=== PATIENT | male | born 2000 | race Caucasian/White ===

== ENCOUNTER 2024-06-20 17:07 | Emergency (ER) | payer MEDICAID, SELFPAY ==
[2024-06-20 17:11] VITALS: BP 117/69; PULSE 104; TEMP 36.9; O2SAT 97; BMI 37.5
--- NOTE | 2024-06-20 17:18 | XR_ITS ---
[facility] [id number] Patient Name: CHINMAY DUMONT MRN: [id number] date: 2000 Sex: M Assigned Patient Location: ER Current Patient Location: Accession/Order Number: [id number] Exam Date: 06/20/2024 17:28 Report Date: 06/20/2024 19:07 At the request of: WES VILCHIS Procedure: XR chest 1V EXAM: XR chest 1V TECHNIQUE: Single AP view chest HISTORY: Cough COMPARISON: None. FINDINGS: The heart and mediastinum are unremarkable. The lung schneider are clear of any acute infiltrate, effusion or mass. No acute bony abnormality. XR/XR chest 1V IMPRESSION: No acute pulmonary disease. Electronically authenticated by: BREANN SANCHEZ Date: 06/20/2024 19:07
--- NOTE | 2024-06-20 17:19 | ED.GENADUL1 ---
HPI HPI - General Adult General Chief complaint: Shortness of Breath/Dyspnea Stated complaint: wheezing, sob Time Seen by Provider: 06/20/24 17:07 Source: patient Mode of arrival: Wheelchair Limitations: no limitations History of Present Illness HPI narrative: Patient is a 23-year-old male with a history of asthma who presents to the emergency department for a 1 month history of cough with occasional sputum production, increased shortness of breath and wheezing. He states he ran out of his albuterol several days ago, he had an albuterol breathing treatment several days ago with minimal improvement. He has had no fevers but reports hot and cold chills. He has had occasional blood-tinged nasal drainage but has not had any hemoptysis. He denies any recent antibiotics or steroids. Related Data Home Medications ?Medication ?Instructions ?Recorded ?Confirmed albuterol sulfate 2.5 mg/3 mL 2.5 mg continuous nebulization Q6H 06/20/24 06/20/24 (0.083 %) solution for nebulization PRN shortness of breath or wheezing albuterol sulfate 90 mcg/actuation 1 puff inhalation Q4H PRN 06/20/24 06/20/24 aerosol inhaler shortness of breath or wheezing cholecalciferol (vitamin D3) 1,250 1,250 mcg PO QWEEK 06/20/24 06/20/24 mcg (50,000 unit) capsule levothyroxine 50 mcg tablet 50 mcg PO DAILY 06/20/24 06/20/24 montelukast 10 mg tablet 10 mg PO DAILY 06/20/24 06/20/24 Previous Rx's ?Medication ?Instructions ?Recorded albuterol sulfate 2.5 mg/3 mL 2.5 mg (3 mL) inhalation Q6H PRN 06/20/24 (0.083 %) solution for nebulization shortness of breath or wheezing #90 mL albuterol sulfate 90 mcg/actuation 2 inh inhalation Q4H PRN shortness 06/20/24 aerosol inhaler of breath or wheezing #8.5 grams azithromycin 250 mg tablet See Rx Instructions PO .COMPLEX #6 06/20/24 (Zithromax Z-Andres) tabs methylprednisolone 4 mg tablets in See Rx Instructions .Route 06/20/24 a dose pack (Medrol (Andres)) .COMPLEX #21 ea Allergies Allergy/AdvReac Type Severity Reaction Status Date / Time No Known Drug Allergies Allergy Verified 06/20/24 17:10 Opioid HPI Opioid Management Most Recent Opioid Data: No Data to Display Review of Systems ROS Constitutional Reports: chills; Denies: fever Ears, nose, mouth, and throat Reports: nasal congestion; Denies: throat pain Cardiovascular Denies: chest pain Respiratory Reports: shortness of breath, cough, wheezing, change in phlegm color and chest congestion; Denies: coughing up blood Gastrointestinal Denies: nausea or vomiting Musculoskeletal Denies: back pain Integumentary/Breast Denies: rash Neurological Denies: numbness in extremities or weakness in extremities Hematologic/Lymphatic Denies: easy bruising or easy bleeding PFSH [facility] Social History Little interest or pleasure in doing things: not at all Feeling down, depressed, or hopeless: not at all Exam Narrative Exam Narrative: Gen.: Awake, alert, in no distress Head: Normocephalic, atraumatic ENT: Moist mucous membranes Respiratory: No respiratory distress, diminished lung sounds globally with no significant wheezing. Patient speaks in full sentences Cardio: Regular rate and rhythm Extremities: Moves extremities equally Psych: Normal mood and affect Neuro: No focal neuro deficit Skin: Warm, dry, intact Constitutional Vital Signs, click to edit/add: Last Vital Signs Temp 98.4 F 06/20/24 17:11 Pulse 95 H 06/20/24 17:32 Resp 20 06/20/24 17:32 BP 117/69 06/20/24 17:11 Pulse Ox 95 06/20/24 17:32 O2 Del Method Room Air 06/20/24 17:32 Course Vital Signs Vital signs: Vital Signs Temperature 98.4 F 06/20/24 17:11 Pulse Rate 104 H 06/20/24 17:11 Respiratory Rate 24 H 06/20/24 17:11 Blood Pressure 117/69 06/20/24 17:11 Pulse Oximetry 97 06/20/24 17:11 Oxygen Delivery Method Room Air 06/20/24 17:11 Temperature 98.4 F 06/20/24 17:11 Pulse Rate 95 H 06/20/24 17:32 Respiratory Rate 20 06/20/24 17:32 Blood Pressure 117/69 06/20/24 17:11 Pulse Oximetry 95 06/20/24 17:32 Oxygen Delivery Method Room Air 06/20/24 17:32 Medical Decision Making MDM Narrative Medical decision making narrative: Chest x-ray is unremarkable, patient given a breathing treatment and steroids in the emergency department. He has normal oxygen saturation, unremarkable vital signs. He will be treated based on the duration of his illness and the antibiotic, steroid taper and will be placed on his inhaler and nebulizers for home. Follow-up with PCP and return to the emergency department if symptoms change or worsen. SUPERVISED APC VISIT, PHYSICIAN ATTESTATION: Based on the medical record the care appears appropriate. ? Medical Records Medical records reviewed: Yes I reviewed the patient's medical records Imaging Data Chest x-ray: Attestation: I have reviewed the pertinent imaging results. Radiologist's impression: ITS Impressions Chest X-Ray 06/20/24 17:18 IMPRESSION: No acute pulmonary disease. Electronically authenticated by: BREANN SANCHEZ Date: 06/20/2024 19:07 Discharge Plan Discharge Chief Complaint: Shortness of Breath/Dyspnea Clinical Impression: Asthma with acute exacerbation, Upper respiratory infection Patient Disposition: Home, Self-Care Time of Disposition Decision: 18:09 Condition: Good Prescriptions / Home Meds: New albuterol sulfate 2.5 mg /3 mL (0.083 %) solution for nebulization 2.5 mg inhalation Q6H PRN (Reason: shortness of breath or wheezing) Qty: 90 0RF azithromycin [Zithromax Z-Andres] 250 mg tablet See Rx Instructions .ROUTE .COMPLEX Qty: 6 0RF Rx Instructions: For 250 mg dose pack: take 500 mg today (day 1), then 250 mg for 4 days (days 2-5) methylprednisolone [Medrol (Andres)] 4 mg tablets,dose pack See Rx Instructions .ROUTE .COMPLEX Qty: 21 0RF Rx Instructions: Taper as directed albuterol sulfate 90 mcg/actuation HFA aerosol inhaler 2 inh inhalation Q4H PRN (Reason: shortness of breath or wheezing) Qty: 8.5 0RF No Action albuterol sulfate 2.5 mg /3 mL (0.083 %) solution for nebulization 2.5 mg continuous nebulization Q6H PRN (Reason: shortness of breath or wheezing) albuterol sulfate 90 mcg/actuation HFA aerosol inhaler 1 puff INHALATION Q4H PRN (Reason: shortness of breath or wheezing) cholecalciferol (vitamin D3) 1,250 mcg (50,000 unit) capsule 1,250 mcg PO QWEEK levothyroxine 50 mcg tablet 50 mcg PO DAILY montelukast 10 mg tablet 10 mg PO DAILY Print Language: Tajik Instructions: Asthma (ED), Upper Respiratory Infection (ED) Referrals: Physician,Non-Staff, [Physician] - 1 week Discharge Date/Time: 06/20/24 18:18
[2024-06-20] MEDS: ALBUTEROL SULFATE 2.5 MG/3 ML VIAL NEB IH (17:31)
[2024-06-20 17:32] VITALS: PULSE 95; O2SAT 95
[2024-06-20] MEDS: PREDNISONE 20 MG TABLET 60 MG PO (17:37)
== END 2024-06-20 18:18 | disposition home or self-care (01) ==
PROVIDERS: Emergency Provider Emergency Medicine; PCP Nurse Practitioner Family
DX: J45.901 Unspecified asthma with (acute) exacerbation (principal); J06.9 Acute upper respiratory infection, unspecified
CPT/HCPCS: 71045; 94640; 99284; J7512

== ENCOUNTER 2024-11-12 23:19 | Emergency (ER) | payer MEDICAID, SELFPAY ==
[2024-11-12 23:33] VITALS: BP 140/95; PULSE 71; TEMP 36.9; O2SAT 97; BMI 35.0
--- OUTSIDE RECORDS SUMMARY | 2024-11-12 23:34 | XMS_ITS | CCD ---
Author Organization [facility] Care Team Providers Care Brakes Inspector Name Role Phone LOUIE GAMINO Admitting Unavailable LOUIE GAMINO Attending Unavailable JD NOBLE Referring Unavailable JD NOBLE Primary Care Unavailable [place] Procedure Practitioner Unavailab LOUIE Rosales Surgeon Unavailable [place] Procedure Practitioner Unavailab LILI Kennedy Surgeon Unavailable RICKIE ARCHULETA Attending Unavailable GEREMIASRICKIE Lucas Consulting Unavailable RICKIE ARCHULETA Primary Care Unavailable GEREMIASRICKIE Lucas Admitting Unavailable NO FAMILY, PHYSICIAN Primary Care Provider Unava MD Lucho Maldonado Jr Emergency Provider BHUMIKA Todd Attending Provider Lucho Zelaya Unavailable BHUMIKA Todd Primary Care Provider BHUMIKA Todd Attending Provider BHUMIKA Todd Attending Provider Lucho Zelaya MD Attending Provider [facility], Services Primary Care Prov ider Lucho Zelaya MD Attending Provider [facility], Services Primary Care Prov ider Teagan Todd Admitting Unavailable Teagan Todd Attending Unavailable [facility], Services Primary Care U navailable Lucho Zelaya Admitting Unavailable Lucho Zelaya Attending Unavailable [facility], Services Primary Care U navailable Lucho Zelaya Admitting Unavailable Lucho Zelaya Attending Unavailable [facility], Services Primary Care U navailable Lucho Zelaya Admitting Unavailable Lucho Zelaya Attending [facility], Services Primary Care U navailable Medications Current Medications Medication Drug Class(es) Dates Sig (Normalized) Sig (Original) acetaminophen 325 mg / HYDROcodone bitartrate 5 mg oral tablet (1 source) Opioid Agonist Start: 08-19-2024 take 1 tablet by mouth every four to six hours as needed for pain Hydrocodone-Acetam inophen 5-325 mg tablet Active 1 TAB PO EVERY 4-6 HOURS as needed for pain 10 5 August 19, 2024 to be used post op albuterol 0.83 mg/ml inhalation solution (7 sources) beta2-Adrenergic Agonist Start: 08-20-2024 Albuterol Sulfate 2.5 mg /3 mL (0.083 %) solution for nebulization Active 2.5 MG CNTNEBULIZ .q4-6hr as needed for shortness of breath or wheezing August 20, 2024 12:00am Start: 08-21-2017 End: 11-13-2017 Albuterol Sulfate 2.5 mg /3 mL (0.083 %) solution for nebulization Discontinued 1 UNIT INHALATION As Directed as needed for Shortness Of Breath August 21, 2017 12:00am November 13, 2017 11:07pm cholecalciferol 1.25 mg oral capsule (2 sources) Vitamin D Start: 05-27-2024 take 1 capsule by mouth once daily Cholecalciferol (Vitamin D3) 1,250 mcg (50,000 unit) capsule Active 1250 MCG PO Daily May 27, 2024 1:00am Start: 05-27-2024 Cholecalcifero l (Vitamin D3) 1,250 mcg (50,000 unit) capsule Active PO May 27, 2024 12:00am levothyroxine sodium 0.05 mg oral tablet (3 sources) l-Thyroxine Start: 05-27-2024 take 1 tablet by mouth once daily Levothyroxine 50 mcg tablet Active 50 MCG PO Daily May 27, 2024 1:00am Start: 05-27-2024 Levothyroxine 50 mcg tablet Active MCG PO May 27, 2024 12:00am Levothyroxine So dium Active montelukast (1 source) Leukotriene Receptor Antagonist Singulair Active vitamin b12 1 mg oral tablet (2 sources) Vitamin B12 Start: take 1 tablet by mouth once daily Cyanocobalamin (Vitamin B-12) 1,000 mcg tablet Active 1000 MCG PO Daily May 27, 2024 1:00am Completed/Discontinued Medications Medication Drug Class(es) Dates Sig (Normalized) Sig (Original) ibuprofen 600 mg oral tablet (12 sources) Nonsteroidal Anti-inflammatory Drug Start: 09-02-2021 End: 05-27-2024 take 1 tablet by mouth every eight hours as needed for pain Ibuprofen 600 mg tablet Discontinued 600 MG PO Q8H as needed for pain September 02, 2021 12:00am May 27, 2024 9:45am Start: 11-29-2017 End: 09-01-2021 take 1 tablet by mouth three times daily as needed for pain Ibuprofen 800 mg Tablet Discontinued 800 MG PO Three times daily as needed for Pain November 29, 2017 12:00am September 01, 2021 10:47pm naproxen 500 mg oral tablet (6 sources) Nonsteroidal Anti-inflammatory Drug Start: 11-13-2017 End: 09-01-2021 take 1 tablet by mouth twice daily Naproxen (Naprosyn) 500 mg tablet Discontinued 500 MG PO Twice daily November 13, 2017 12:00am September 01, 2021 10:47pm Problems Active Problems Problem Classification Problem Date Documented Date Episodic/Chronic Heart valve disorders (1 source) Rheumatic tricuspid insufficiency; Translations: [RHEUMATIC TRICUSPID INSUFFICIENCY] Onset: 04-04-2020 Chronic Joint disorders and dislocations; trauma-related (13 sources) Derangement of left knee; Translations: [Unspecified internal derangement of left knee] Onset: 09-08-2024 Chronic Joint disorders and dislocations; trauma-related (5 sources) Bucket-handle tear of lateral meniscus, current injury, left knee, initial encounter; Translations: [Complex tear of lateral meniscus, current injury, left knee, initial encounter] Onset: 06-21-2018 Episodic Nutritional deficiencies (1 source) Vitamin D deficiency, unspecified; Translations: [Vitamin D deficiency, unspecified] Onset: 02-28-2024 Chronic Open wounds of head; neck; and trunk (6 sources) Laceration of chin; Translations: [Laceration without foreign body of other part of head, initial encounter] 08-21-2017 Episodic Comment on above: Problem List clean-u p per request of Phys. EHR Cmte Other circulatory disease (6 sources) Elevated blood-pressure reading without diagnosis of hypertension; Translations: [Elevated blood-pressure reading, without diagnosis of hypertension] 09-02-2021 Episodic Comment on above: Problem List clean-u p per request of Phys. EHR Cmte Other nutritional; endocrine; and metabolic disorders (1 source) Obesity, unspecified; Translations: [OBESITY, UNSPECIFIED] Onset: 06-21-2018 Chronic Other nutritional; endocrine; and metabolic disorders (1 source) Body mass index (BMI) 39.0-39.9, adult; Translations: [BODY MASS INDEX (BMI) 39.0-39.9, ADULT] Onset: 06-21-2018 Chronic Residual codes; unclassified (3 sources) Other specified postprocedural states; Translations: [Other postprocedural status] 05-27-2024 Episodic Residual codes; unclassified (1 source) Postprocedural state finding; Translations: [Other specified postprocedural states] 08-19-2024 Episodic Substance-related disorders (1 source) Nicotine dependence, cigarettes, uncomplicated; Translations: [NICOTINE DEPENDENCE, CIGARETTES, UNCOMPLICATED] Onset: 06-21-2018 Chronic Thyroid disorders (4 sources) Hypothyroidism; Translations: [Hypothyroidism, unspecified] Onset: 02-28-2024 08-02-2023 Chronic Unclassified (2 sources) TEAR OF LATERAL MENISCUS OF KNEE Onset: 06-21-2018 Past or Other Problems Problem Classification Problem Date Documented Da te Episodic/Chronic Malaise and fatigue (1 source) Other fatigue; Translations: [Other fatigue] Onset: 02-28-2024 Episodic Nonspecific chest pain (11 sources) Other chest pain; Translations: [Chest wall pain] Onset: 03-30-2020 09-02-2021 Episodic Comment on above: Problem List clean-u p per request of Phys. EHR Cmte Other non-traumatic joint disorders (5 sources) Pain in left knee; Translations: [Acute pain of left knee] Onset: 05-27-2024 Episodic Other non-traumatic joint disorders (1 source) Pain in unspecified joint; Translations: [Pain in unspecified joint] Onset: 02-28-2024 Episodic Results Test Name Value Interpretation Reference Range Facility X-ray reportOrdered By: Guillaume Lugo on 05-27-[address] [facility] [address] [place] [place] [address] XRay Report Signed Patient: Chinmay Donaldson MR#: [id number] : 2000 Acct:[id number] Age/Sex: 23 / M ADM Date: 4 Loc: [facility] Att[facility] Dr: Lucho Zelaya MD Copies to: Lucho Zelaya MD~ Ordering Provider: Lucho Zelaya MD Date of Service: 05/27/24 XR/XR knee LT 2V: M25.562 - Pain in left knee 2 views left knee plain film COMPARISON: 08/03/2022 HISTORY: Left knee pain for 5 years ACUTE FINDINGS: No acute findings DEGENERATIVE CHANGE: Unremarkable SOFT TISSUE FINDINGS: Unremarkable JOINT EFFUSION: None POSTOP CHANGES: None BONE MINERALIZATION: Adequate XR/XR knee LT 2V IMPRESSION: Unremarkable exam Impression dictated by: Julio César Lugo M.D.05/27/2024 2:00 PM Dictation Location: [place] [address] Transcribed By: [facility] 05/27/24 1400 Dictated By: Julio César Lugo DO 05/27/24 1359 Signed By: 05/27/24 1400 [facility] XR knee LT 2Von 05-27-2024 XR knee LT [address]V [facility] [address] [place] [address] XRay Report Signed Patient: Chinmay Donaldson MR#: [id number] : 2000 Acct:[id number] Age/Sex: 23 / M ADM Date: 05/27/24 Loc: [facility]: [facility] Attending Dr: Lucho Zelaya MD Copies to: Lucho Zelaya MD Ordering Provider: Lucho Zelaya MD Date of Service: 05/27/24 XR/XR knee LT 2V: M25.562 - Pain in left knee 2 views left knee plain film COMPARISON: 08/03/2022 HISTORY: Left knee pain for 5 years ACUTE FINDINGS: No acute findings DEGENERATIVE CHANGE: Unremarkable SOFT TISSUE FINDINGS: Unremarkable JOINT EFFUSION: None POSTOP CHANGES: None BONE MINERALIZATION: Adequate XR/XR knee LT 2V IMPRESSION: Unremarkable exam Impression dictated by: Julio César Lugo M.D.05/27/2024 2:00 PM Dictation Location: [place] [address] Transcribed By: [facility] 05/27/24 1400 Dictated By: Julio César Lugo DO 05/27/24 1359 Signed By: 05/27/24 1400 Normal [facility] CJ with Reflexon 02-28-2024 CJ with Reflex Negative Normal Negative [facility] Comment on above: Order Comment: Reaso n for Exam Multiple joint pain Result Comment: Perf ormed at: - [facility] [address] [id number] Supervisor [employer]: Alexis Livingston PhD, Phone: [phone] PERFORMED BY: [place] [address] PATHOLOGIST WIRE LOOP MACHINE OPERATOR ERICK MEHTA M.D. Performed By: #### C MP, [id number], CBC, T4F, [id number], TSH3 wRFLX, LIPID #### [facility] [address] [place] [address] #### CJ CHOICE, RA #### [facility] , Alanine aminotransferase [En zymatic activity/volume] in Serum or PlasmaOrdered By: Teagan Todd on 02-28-2024 ALT [Catalytic activity/Vol] 26 U/L Normal 7-52 [facility] Comment on above: Order Comment: Reaso n for Exam Hypothyroidism, unspecified type Reason for Exam Other chest pain Reason for Exam Other fatigue Reason for Exam Hypovitaminosis D Performed By: #### C MP, [id number], CBC, T4F, [id number], TSH3 wRFLX, LIPID #### [facility] [address] [place] [address] [place] #### CJ CHOICE, RA #### [facility] , Albumin [Mass/volume] in Ser um or Plasma by Bromocresol green (BCG) dye binding methoOrdered By: Teagan Todd on 02-28-2024 Albumin BCG dye [Mass/Vol] 4.3 g/dL 3.5-5.7 [facility] Alkaline phosphatase [Enzyma tic activity/volume] in Serum or PlasmaOrdered By: Teagan Todd on 02-28-2024 ALP [Catalytic activity/Vol] 76 U/L Normal 34-104 [facility] Comment on above: Order Comment: Reaso n for Exam Hypothyroidism, unspecified type Reason for Exam Other chest pain Reason for Exam Other fatigue Reason for Exam Hypovitaminosis D Performed By: #### C MP, [id number], CBC, T4F, [id number], TSH3 wRFLX, LIPID #### [facility] [address] [place] [address] [place] #### CJ CHOICE, RA #### [facility] , Aspartate aminotransferase [ Enzymatic activity/volume] in Serum or PlasmaOrdered By: Teagan Todd on 02-28-2024 AST [Catalytic activity/Vol] 23 U/L Normal 13-39 [facility] Comment on above: Order Comment: Reaso n for Exam Hypothyroidism, unspecified type Reason for Exam Other chest pain Reason for Exam Other fatigue Reason for Exam Hypovitaminosis D Performed By: #### C MP, [id number], CBC, T4F, [id number], TSH3 wRFLX, LIPID #### [facility] [address] [place] [address] [place] #### CJ CHOICE, RA #### [facility] , Automated basophil %Ordered By: Teagan Todd on 02-28-2024 Basophils/100 WBC (Bld) 1.1 % Normal . [facility] Comment on above: Order Comment: Reaso n for Exam Hypothyroidism, unspecified type Performed By: #### C MP, [id number], CBC, T4F, [id number], TSH3 wRFLX, LIPID #### [facility] [address] [place] [address] [place] #### CJ CHOICE, RA #### [facility] , Automated basophil countOrde red By: Teagan Todd on 02-28-2024 Basophils (Bld) [#/Vol] 0.1 10*3/uL Normal 0.0-0.2 [facility] Comment on above: Order Comment: Reaso n for Exam Hypothyroidism, unspecified type Result Comment: PERF ORMED BY: [place] [address] PATHOLOGIST WIRE LOOP MACHINE OPERATOR ERICK MEHTA M.D. Performed By: #### C MP, [id number], CBC, T4F, [id number], TSH3 wRFLX, LIPID #### [address] #### CJ CHOICE, RA #### [facility] , Automated blood monocyte cou ntOrdered By: Teagan Todd on 02-28-2024 Monocytes (Bld) [#/Vol] 0.8 10*3/uL Normal 0.0-0.8 [facility] Comment on above: Order Comment: Reaso n for Exam Hypothyroidism, unspecified type Performed By: #### C MP, [id number], CBC, T4F, [id number], TSH3 wRFLX, LIPID #### [place] [address] [place] #### CJ BONNIE, RA #### [facility] , Automated eosinophil %Ordere d By: Teagan Todd on 02-28-2024 Eosinophils/100 WBC (Bld) 2.9 % Normal . [facility] Comment on above: Order Comment: Reaso n for Exam Hypothyroidism, unspecified type Performed By: #### C MP, [id number], CBC, T4F, [id number], TSH3 wRFLX, LIPID #### [place] [address] [place] #### CJ CHOICE, RA #### [facility] , Automated eosinophil countOr dered By: Teagan Todd on 02-28-2024 Eosinophils (Bld) [#/Vol] 0.3 10*3/uL Normal 0.0-0.45 [facility] Comment on above: Order Comment: Reaso n for Exam Hypothyroidism, unspecified type Performed By: #### C MP, [id number], CBC, T4F, [id number], TSH3 wRFLX, LIPID #### [address] [place] [address] [place] #### CJ CHOICE, RA #### [facility] , Automated monocyte %Ordered By: Teagan Todd on 02-28-2024 Monocytes/100 WBC (Bld) 8.7 % Normal . [facility] Comment on above: Order Comment: Reaso n for Exam Hypothyroidism, unspecified type Performed By: #### C MP, [id number], CBC, T4F, [id number], TSH3 wRFLX, LIPID #### [facility] [address] [place] [address] [place] #### CJ CHOICE, RA #### [facility] , Automated neutrophil %Ordere d By: Teagan Todd on 02-28-2024 Neutrophils/100 WBC (Bld) 48.7 % Normal . [facility] Comment on above: Order Comment: Reaso n for Exam Hypothyroidism, unspecified type Performed By: #### C MP, [id number], CBC, T4F, [id number], TSH3 wRFLX, LIPID #### [place] [address] [place] #### CJ CHOICE, RA #### [facility] , Bilirubin.total [Mass/volume ] in Serum or PlasmaOrdered By: Teagan Todd on 02-28-2024 Bilirubin [Mass/Vol] 0.4 mg/dL Normal 0.3-1.0 [facility] Comment on above: Order Comment: Reaso n for Exam Hypothyroidism, unspecified type Reason for Exam Other chest pain Reason for Exam Other fatigue Reason for Exam Hypovitaminosis D Performed By: #### C MP, [id number], CBC, T4F, [id number], TSH3 wRFLX, LIPID #### [facility] [address] [place] [address] [place] #### CJ CHOICE, RA #### [facility] , Calcium [Mass/volume] in Ser um or PlasmaOrdered By: Teagan Todd on 02-28-2024 Calcium [Mass/Vol] 9.3 mg/dL Normal 8.6-10.3 [facility] Comment on above: Order Comment: Reaso n for Exam Hypothyroidism, unspecified type Reason for Exam Other chest pain Reason for Exam Other fatigue Reason for Exam Hypovitaminosis D Performed By: #### C MP, [id number], CBC, T4F, [id number], TSH3 wRFLX, LIPID #### [facility] [address] [place] [address] [place] #### CJ CHOICE, RA #### [facility] , Carbon dioxide, total [Moles /volume] in Serum or PlasmaOrdered By: Teagan Todd on 02-28-2024 CO2 [Moles/Vol] 22.8 mmol/L Normal 21.0-31.0 [facility] Comment on above: Order Comment: Reaso n for Exam Hypothyroidism, unspecified type Reason for Exam Other chest pain Reason for Exam Other fatigue Reason for Exam Hypovitaminosis D Performed By: #### C MP, [id number], CBC, T4F, [id number], TSH3 wRFLX, LIPID #### [facility] [address] [place] [address] [place] #### CJ CHOICE, RA #### [facility] , Chloride [Moles/volume] in S rachel or PlasmaOrdered By: Teagan Todd on 02-28-2024 Chloride [Moles/Vol] 106 mmol/L Normal 98-107 [facility] Comment on above: Order Comment: Reaso n for Exam Hypothyroidism, unspecified type Reason for Exam Other chest pain Reason for Exam Other fatigue Reason for Exam Hypovitaminosis D Performed By: #### C MP, [id number], CBC, T4F, [id number], TSH3 wRFLX, LIPID #### [facility] [address] [place] [address] [place] #### CJ CHOICE, RA #### [facility] , Cholesterol [Mass/volume] in Serum or PlasmaOrdered By: Teagan Todd on 02-28-2024 Cholesterol [Mass/Vol] 199 mg/dL Normal 140-200 [facility] Comment on above: Chol less than 200 m g/dl low riskChol 201-239 mg/dl borderline riskChol 240 mg/dl and greater high risk Order Comment: Reaso n for Exam Hypothyroidism, unspecified type Reason for Exam Other chest pain Reason for Exam Other fatigue Reason for Exam Hypovitaminosis D Result Comment: Chol less than 200 mg/dl low risk Chol 201-239 mg/dl borderline risk Chol 240 mg/dl and greater high risk Performed By: #### C MP, [id number], CBC, T4F, [id number], TSH3 wRFLX, LIPID #### [facility] [address] [place] [address] [place] #### CJ NICOLE, RA #### [facility] , Cholesterol in LDL Calc [Mas s/Vol]Ordered By: Teagan Todd on 02-28-2024 Cholesterol in LDL [Mass/Vol] 128 mg/dL High 0-100 [facility] Comment on above: LDL ATP III CLASSIFI CATIONLDL less than 100 mg/dL OptimalLDL 100-129 mg/dL Near or above optimalLDL 130-159 mg/dL Borderline highLDL 160-189 mg/dL HighLDL greater than 189 mg/dL Very high Cholesterol in VLDL Calc [Ma ss/Vol]Ordered By: Teagan Todd on 02-28-2024 Cholesterol in VLDL [Mass/Vol] 41 mg/dL [facility] Complete Blood Count Auto Di ffon 02-28-2024 Mean Corpuscular HGB Conc 34.5 g/dL Normal 32.5-35.6 [facility] Comment on above: Order Comment: Reaso n for Exam Hypothyroidism, unspecified type Performed By: #### C MP, [id number], CBC, T4F, [id number], TSH3 wRFLX, LIPID #### [facility] [address] [place] [address] [place] #### CJ BONNIE, RA #### [facility] , NRBC% 0.2 /100{WBC} Normal 0-0.5 [facility] Comment on above: Order Comment: Reaso n for Exam Hypothyroidism, unspecified type Performed By: #### C MP, [id number], CBC, T4F, [id number], TSH3 wRFLX, LIPID #### [facility] [address] [place] [address] [place] #### CJ CHOICE, RA #### [facility] , Comprehensive Metabolic Pane дмитрий 02-28-2024 Albumin [Mass/Vol] 4.3 g/dL Normal 3.5-5.7 [facility] Comment on above: Order Comment: Reaso n for Exam Hypothyroidism, unspecified type Reason for Exam Other chest pain Reason for Exam Other fatigue Reason for Exam Hypovitaminosis D Performed By: #### C MP, [id number], CBC, T4F, [id number], TSH3 wRFLX, LIPID #### [place] [address] [place] #### CJ BONNIE, RA #### [facility] , GFR/1.73 sq M.predicted MDRD (S/P/Bld) [Vol rate/Area] mL/min/{1.73_m2} Normal [facility] Comment on above: Order Comment: Reaso n for Exam Hypothyroidism, unspecified type Reason for Exam Other chest pain Reason for Exam Other fatigue Reason for Exam Hypovitaminosis D Performed By: #### C MP, [id number], CBC, T4F, [id number], TSH3 wRFLX, LIPID #### [place] [address] [place] #### CJ NICOLE, RA #### [facility] , Creatinine [Mass/volume] in Serum or PlasmaOrdered By: Teagan Todd on 02-28-2024 Creatinine [Mass/Vol] 0.90 mg/dL Normal 0.70-1.30 [facility] Comment on above: Order Comment: Reaso n for Exam Hypothyroidism, unspecified type Reason for Exam Other chest pain Reason for Exam Other fatigue Reason for Exam Hypovitaminosis D Performed By: #### C MP, [id number], CBC, T4F, [id number], TSH3 wRFLX, LIPID #### [place] [address] [place] #### CJ BONNIE, RA #### [facility] , Erythrocyte distribution wid th [Ratio] by Automated countOrdered By: Teagan Todd on 02-28-2024 Erythrocyte distribution width (RBC) [Ratio] 14.3 % Normal 12.0-14.8 [facility] Comment on above: Order Comment: Reaso n for Exam Hypothyroidism, unspecified type Performed By: #### C MP, [id number], CBC, T4F, [id number], TSH3 wRFLX, LIPID #### [facility] [address] [place] [address] [place] #### CJ CHOICE, RA #### [facility] , Erythrocytes [#/volume] in B lood by Automated countOrdered By: Teagan Todd on 02-28-2024 RBC (Bld) [#/Vol] 4.55 10*6/uL Normal 3.90-5.60 [facility] Comment on above: Order Comment: Reaso n for Exam Hypothyroidism, unspecified type Performed By: #### C MP, [id number], CBC, T4F, [id number], TSH3 wRFLX, LIPID #### [facility] [address] [place] [address] [place] #### CJ CHOICE, RA #### [facility] , Folate [Mass/volume] in Seru m or PlasmaOrdered By: Teagan Todd on 02-28-2024 Folate [Mass/Vol] 17.6 ng/mL >5.9 [facility] Comment on above: Folate reference ran ge: >5.9 ng/mlThe WHO technical consultation on folate and vitamin [id number] has determined that folate concentrations lessthan 4 ng/ml are considered deficient. Glucose [Mass/volume] in Ser um or PlasmaOrdered By: Teagan Todd on 02-28-2024 Glucose [Mass/Vol] 105 mg/dL High 70-100 [facility] Comment on above: ADA recommended refe rence rangeRandom Glucose Reference Range is dependent on time and content of last meal. Glucose of more than 200 mg/dL in a nonstressed, ambulatory subject supports the diagnosis of Diabetes Mellitus. Order Comment: Reaso n for Exam Hypothyroidism, unspecified type Reason for Exam Other chest pain Reason for Exam Other fatigue Reason for Exam Hypovitaminosis D Result Comment: [facility] Glucose Reference Range is dependent on time and content of last meal. Glucose of more than 200 mg/dL in a nonstressed, ambulatory subject supports the diagnosis of Diabetes Mellitus. ADA recommended reference range Performed By: #### C MP, [id number], CBC, T4F, [id number], TSH3 wRFLX, LIPID #### [facility] [address] [place] [address] [place] #### CJ CHOICE, RA #### [facility] , Hematocrit [Volume Fraction] of Blood by Automated countOrdered By: Teagan Todd on 02-28-2024 Hematocrit (Bld) [Volume fraction] 42.7 % Normal 38.8-50.0 [facility] Comment on above: Order Comment: Reaso n for Exam Hypothyroidism, unspecified type Performed By: #### C MP, [id number], CBC, T4F, [id number], TSH3 wRFLX, LIPID #### [facility] [address] [place] [address] [place] #### CJ CHOICE, RA #### [facility] , Hemoglobin [Mass/volume] in BloodOrdered By: Teagan Todd on 02-28-2024 Hemoglobin (Bld) [Mass/Vol] 14.7 g/dL Normal 13.0-17.0 [facility] Comment on above: Order Comment: Reaso n for Exam Hypothyroidism, unspecified type Performed By: #### C MP, [id number], CBC, T4F, [id number], TSH3 wRFLX, LIPID #### [place] [address] [place] #### CJ CHOICE, RA #### [facility] , Leukocytes [#/volume] correc eliud for nucleated erythrocytes in Blood by Automated counOrdered By: Teagan Todd on 02-28-2024 WBC corrected for nucl RBC Auto (Bld) [#/Vol] 9.1 10*3/uL 4.1-10.5 [facility] Leukocytes [#/volume] in Blo od by Automated countOrdered By: Teagan Todd on 02-28-2024 WBC (Bld) [#/Vol] 9.1 10*3/uL Normal 4.1-10.5 [facility] Comment on above: Order Comment: Reaso n for Exam Hypothyroidism, unspecified type Performed By: #### C MP, [id number], CBC, T4F, [id number], TSH3 wRFLX, LIPID #### [facility] [address] [place] [address] [place] #### CJ CHOICE, RA #### [facility] , Lipid Panelon 02-28-2024 LDL Cholesterol,Calculated 128 mg/dL High 0-100 [facility] Comment on above: Order Comment: Reaso n for Exam Hypothyroidism, unspecified type Reason for Exam Other chest pain Reason for Exam Other fatigue Reason for Exam Hypovitaminosis D Result Comment: LDL ATP III CLASSIFICATION LDL less than 100 mg/dL Optimal LDL 100-129 mg/dL Near or above optimal LDL 130-159 mg/dL Borderline high LDL 160-189 mg/dL High LDL greater than 189 mg/dL Very high Performed By: #### C MP, [id number], CBC, T4F, [id number], TSH3 wRFLX, LIPID #### [facility] [address] [place] [address] [place] #### CJ BONNIE, RA #### [facility] , Triglyceride w/Reflex 207 mg/dL High 0-149 [facility] Comment on above: Order Comment: Reaso n for Exam Hypothyroidism, unspecified type Reason for Exam Other chest pain Reason for Exam Other fatigue Reason for Exam Hypovitaminosis D Result Comment: TRIG ATP III CLASSIFICATION TRIG less than 150 mg/dL Normal TRIG 150-199 mg/dL Borderline high TRIG 200-500 mg/dL High TRIG greater than 500 mg/dL Very high Standard traceable to the Center for Disease Conrtrol and Prevention (CDC) test method. Performed By: #### C MP, [id number], CBC, T4F, [id number], TSH3 wRFLX, LIPID #### [facility] [address] [place] [address] [place] #### CJ CHOICE, RA #### [facility] , VLDL CHOLESTEROL 41 mg/dL Normal [facility] Comment on above: Order Comment: Reaso n for Exam Hypothyroidism, unspecified type Reason for Exam Other chest pain Reason for Exam Other fatigue Reason for Exam Hypovitaminosis D Performed By: #### C MP, [id number], CBC, T4F, [id number], TSH3 wRFLX, LIPID #### [facility] [address] [place] [address] #### CJ CHOICE, RA #### [facility] , Lymphocytes [#/volume] in Bl ood by Automated countOrdered By: Teagan Todd on 02-28-2024 Lymphocytes (Bld) [#/Vol] 3.5 10*3/uL Normal 1.00-4.8 [facility] Comment on above: Order Comment: Reaso n for Exam Hypothyroidism, unspecified type Performed By: #### C MP, [id number], CBC, T4F, [id number], TSH3 wRFLX, LIPID #### [facility] [address] [place] [address] #### CJ CHOICE, RA #### [facility] , Lymphocytes/100 leukocytes i n Blood by Automated countOrdered By: Teagan Todd on 02-28-2024 Lymphocytes/100 WBC (Bld) 38.6 % Normal . [facility] Comment on above: Order Comment: Reaso n for Exam Hypothyroidism, unspecified type Performed By: #### C MP, [id number], CBC, T4F, [id number], TSH3 wRFLX, LIPID #### [place] [address] [place] #### CJ CHOICE, RA #### [facility] , MCH [Entitic mass] by Automa eliud countOrdered By: Teagan Todd on 02-28-2024 MCH (RBC) [Entitic mass] 32.3 pg Normal 27.5-35.2 [facility] Comment on above: Order Comment: Reaso n for Exam Hypothyroidism, unspecified type Performed By: #### C MP, [id number], CBC, T4F, [id number], TSH3 wRFLX, LIPID #### [facility] [address] [place] [address] [place] #### CJ BONNIE, RA #### [facility] , MCHC Auto (RBC) [Mass/Vol]Or dered By: Teagan Todd on 02-28-2024 MCHC (RBC) [Mass/Vol] 34.5 g/dL 32.5-35.6 [facility] MCV [Entitic volume] by Auto mated countOrdered By: Teagan Todd on 02-28-2024 MCV (RBC) [Entitic vol] 93.7 fL Normal 83.5-101 [facility] Comment on above: Order Comment: Reaso n for Exam Hypothyroidism, unspecified type Performed By: #### C MP, [id number], CBC, T4F, [id number], TSH3 wRFLX, LIPID #### [facility] [address] [place] [address] [place] #### CJ NICOLE, RA #### [facility] , Neutrophils [#/volume] in Bl ood by Automated countOrdered By: Teagan Todd on 02-28-2024 Neutrophils (Bld) [#/Vol] 4.4 10*3/uL Normal 1.8-7.7 [facility] Comment on above: Order Comment: Reaso n for Exam Hypothyroidism, unspecified type Performed By: #### C MP, [id number], CBC, T4F, [id number], TSH3 wRFLX, LIPID #### [facility] [address] [place] [address] [place] #### CJ NICOLE, RA #### [facility] , No Panel InformationOrdered By: Teagan Todd on 02-28-2024 Estimated GFR (CKD-EPI) > 60.0 mL/Min [facility] Creatinine Clearance (Chem N/A [facility] Nucleated erythrocytes [Pres ence] in Blood by Automated countOrdered By: Teagan oTdd on 02-28-2024 Nucleated RBC Auto Ql (Bld) 0.2 /100{WBC} 0-0.5 [facility] Platelet mean volume [Entiti c volume] in Blood by Automated countOrdered By: Teagan Todd on 02-28-2024 Platelet mean volume (Bld) [Entitic vol] 9.0 fL Normal 6.6-10.1 [facility] Comment on above: Order Comment: Reaso n for Exam Hypothyroidism, unspecified type Performed By: #### C MP, [id number], CBC, T4F, [id number], TSH3 wRFLX, LIPID #### [facility] [address] [place] [address] [place] #### CJ CHOICE, RA #### [facility] , Platelets [#/volume] in Bloo d by Automated countOrdered By: Teagan Todd on 02-28-2024 Platelets (Bld) [#/Vol] 312 10*3/uL Normal 150-450 [facility] Comment on above: Order Comment: Reaso n for Exam Hypothyroidism, unspecified type Performed By: #### C MP, [id number], CBC, T4F, [id number], TSH3 wRFLX, LIPID #### [facility] [address] [place] [address] [place] #### CJ BONNIE, RA #### [facility] , Potassium [Moles/volume] in Serum or PlasmaOrdered By: Teagan Todd on 02-28-2024 Potassium [Moles/Vol] 4.5 mmol/L Normal 3.5-5.1 [facility] Comment on above: Order Comment: Reaso n for Exam Hypothyroidism, unspecified type Reason for Exam Other chest pain Reason for Exam Other fatigue Reason for Exam Hypovitaminosis D Performed By: #### C MP, [id number], CBC, T4F, [id number], TSH3 wRFLX, LIPID #### [facility] [address] [place] [address] [place] #### CJ CHOICE, RA #### [facility] , Protein [Mass/volume] in Ser um or PlasmaOrdered By: Teagan Todd on 02-28-2024 Protein [Mass/Vol] 6.9 g/dL Normal 6.4-8.9 [facility] Comment on above: Order Comment: Reaso n for Exam Hypothyroidism, unspecified type Reason for Exam Other chest pain Reason for Exam Other fatigue Reason for Exam Hypovitaminosis D Performed By: #### C MP, [id number], CBC, T4F, [id number], TSH3 wRFLX, LIPID #### [facility] [address] [place] [address] [place] #### CJ CHOICE, RA #### [facility] , Rheumatoid Factoron 02-28-20 Rheumatoid Factor <10.0 Normal <14.0 [facility] Comment on above: Order Comment: Reaso n for Exam Multiple joint pain Result Comment: Perf ormed at: - [facility] [address] [id number] Supervisor [employer]: Alexis Livingston PhD, Phone: [phone] Performed By: #### C MP, [id number], CBC, T4F, [id number], TSH3 wRFLX, LIPID #### [facility] [address] [place] [address] [place] #### CJ CHOICE, RA #### [facility] , Serum globulin measurement b y calculation (mass/volume)Ordered By: Teagan Todd on 02-28-2024 Globulin (S) [Mass/Vol] 2.6 g/dL [facility] Comment on above: Order Comment: Reaso n for Exam Hypothyroidism, unspecified type Reason for Exam Other chest pain Reason for Exam Other fatigue Reason for Exam Hypovitaminosis D Performed By: #### C MP, [id number], CBC, T4F, [id number], TSH3 wRFLX, LIPID #### [facility] [address] [place] [address] [place] #### CJ CHOICE, RA #### [facility] , Serum or plasma albumin/glob ulin mass ratioOrdered By: Teagan Todd on 02-28-2024 Albumin/Globulin [Mass ratio] 1.7 {ratio} [facility] Comment on above: Order Comment: Reaso n for Exam Hypothyroidism, unspecified type Reason for Exam Other chest pain Reason for Exam Other fatigue Reason for Exam Hypovitaminosis D Performed By: #### C MP, [id number], CBC, T4F, [id number], TSH3 wRFLX, LIPID #### [facility] [address] [place] [address] [place] #### CJ NICOLE, RA #### [facility] , Serum or plasma anion gap de terminationOrdered By: Teagan Todd on 02-28-2024 Anion gap [Moles/Vol] 10.7 mmol/L Normal 6.0-15.0 [facility] Comment on above: Order Comment: Reaso n for Exam Hypothyroidism, unspecified type Reason for Exam Other chest pain Reason for Exam Other fatigue Reason for Exam Hypovitaminosis D Performed By: #### C MP, [id number], CBC, T4F, [id number], TSH3 wRFLX, LIPID #### [facility] [address] [place] [address] [place] #### CJ NICOLE, RA #### [facility] , Serum or plasma high density lipoprotein (HDL) cholesterol measurementOrdered By: Teagan Todd on 02-28-2024 Cholesterol in HDL [Mass/Vol] 30 mg/dL Normal 23-92 [facility] Comment on above: HDL CHOL ATP-III CLA SSIFICATION Cardiovascular RiskHDL > or equal to 60 mg/dL LOWHDL < 40 mg/dL HIGH Order Comment: Reaso n for Exam Hypothyroidism, unspecified type Reason for Exam Other chest pain Reason for Exam Other fatigue Reason for Exam Hypovitaminosis D Result Comment: HDL CHOL ATP-III CLASSIFICATION Cardiovascular Risk HDL > or equal to 60 mg/dL LOW HDL < 40 mg/dL HIGH Performed By: #### C MP, [id number], CBC, T4F, [id number], TSH3 wRFLX, LIPID #### [facility] [address] [place] [address] [place] #### CJ BONNIE, RA #### [facility] , Serum or plasma total choles terol/high density lipoprotein (HDL) cholesterol mass ratOrdered By: Teagan Todd on 02-28-2024 Cholesterol.total/Chol esterol in HDL [Mass ratio] 6.6 {ratio} Normal <5.0 [facility] Comment on above: Order Comment: Reaso n for Exam Hypothyroidism, unspecified type Reason for Exam Other chest pain Reason for Exam Other fatigue Reason for Exam Hypovitaminosis D Performed By: #### C MP, [id number], CBC, T4F, [id number], TSH3 wRFLX, LIPID #### [facility] [address] [place] [address] [place] #### CJ CHOICE, RA #### [facility] , Sodium [Moles/volume] in Ser um or PlasmaOrdered By: Teagan Todd on 02-28-2024 Sodium [Moles/Vol] 135 mmol/L Low 136-145 [facility] Comment on above: Order Comment: Reaso n for Exam Hypothyroidism, unspecified type Reason for Exam Other chest pain Reason for Exam Other fatigue Reason for Exam Hypovitaminosis D Performed By: #### C MP, [id number], CBC, T4F, [id number], TSH3 wRFLX, LIPID #### [facility] [address] [place] [address] [place] #### CJ BONNIE, RA #### [facility] , Thyroid Stim Hormone w/Rflxo n 02-28-2024 Thyroid Stim Hormone w/Rflx 31.51 u[iU]/mL High 0.45-5.33 [facility] Comment on above: Order Comment: Reaso n for Exam Hypothyroidism, unspecified type Reason for Exam Other chest pain Reason for Exam Other fatigue Reason for Exam Hypovitaminosis D Performed By: #### C MP, [id number], CBC, T4F, [id number], TSH3 wRFLX, LIPID #### [facility] [address] [place] [address] [place] #### CJ CHOICE, RA #### [facility] , Thyrotropin [Units/volume] i n Serum or PlasmaOrdered By: Teagan Todd on 02-28-2024 TSH Qn 31.51 m[IU]/L High 0.45-5.33 [facility] Thyroxine (T4) free [Mass/vo lume] in Serum or PlasmaOrdered By: Teagan Todd on 02-28-2024 Free T4 [Mass/Vol] 0.51 ng/dL Low 0.61-1.12 [facility] Comment on above: Order Comment: Reaso n for Exam Hypothyroidism, unspecified type Reason for Exam Other chest pain Reason for Exam Other fatigue Reason for Exam Hypovitaminosis D Performed By: #### C MP, [id number], CBC, T4F, [id number], TSH3 wRFLX, LIPID #### [facility] [address] [place] [address] [place] #### CJ CHOICE, RA #### [facility] , Triglyceride [Mass/volume] i n Serum or PlasmaOrdered By: Teagan Todd on 02-28-2024 Triglyceride [Mass/Vol] 207 mg/dL High 0-149 [facility] Comment on above: TRIG ATP III CLASSIF ICATIONTRIG less than 150 mg/dL NormalTRIG 150-199 mg/dL Borderline highTRIG 200-500 mg/dL High TRIG greater than 500 mg/dL Very highStandard traceable to the Center for Disease Conrtrol and Prevention (CDC) test method. Urea nitrogen [Mass/volume] in Serum or PlasmaOrdered By: Teagan Todd on 02-28-2024 Urea nitrogen [Mass/Vol] 16 mg/dL Normal 7-25 [facility] Comment on above: Order Comment: Reaso n for Exam Hypothyroidism, unspecified type Reason for Exam Other chest pain Reason for Exam Other fatigue Reason for Exam Hypovitaminosis D Performed By: #### C MP, [id number], CBC, T4F, [id number], TSH3 wRFLX, LIPID #### [facility] [address] [place] [address] [place] #### CJ CHOICE, RA #### [facility] , Vit. B12/Folate Profileon Folate 17.6 ng/mL Normal >5.9 [facility] Comment on above: Order Comment: Reaso n for Exam Hypothyroidism, unspecified type Reason for Exam Other chest pain Reason for Exam Other fatigue Reason for Exam Hypovitaminosis D Result Comment: Lorena te reference range: >5.9 ng/ml The WHO technical consultation on folate and vitamin b12 deficiencies has determined that folate concentrations less than 4 ng/ml are considered deficient. Performed By: #### C MP, [id number], CBC, T4F, [id number], TSH3 wRFLX, LIPID #### [address] #### CJ CHOICE, RA #### [facility] , Vitamin B12 ser/plasOrdered By: Teagan Todd on 02-28-2024 Cobalamin (Vitamin B12) [Mass/Vol] 166 pg/mL Low 180-914 [facility] Comment on above: Order Comment: Reaso n for Exam Hypothyroidism, unspecified type Reason for Exam Other chest pain Reason for Exam Other fatigue Reason for Exam Hypovitaminosis D Performed By: #### C MP, [id number], CBC, T4F, [id number], TSH3 wRFLX, LIPID #### [address] #### CJ CHOICE, RA #### [facility] , Vitamin D 25 Hydroxy Totalon 02-28-2024 Vitamin D 25 Hydroxy Total 14.5 ng/mL Low 30-100 [facility] Comment on above: Order Comment: Reaso n for Exam Hypothyroidism, unspecified type Reason for Exam Other chest pain Reason for Exam Other fatigue Reason for Exam Hypovitaminosis D Result Comment: JEANNETTE MIN D STATUS 25(OH)VITAMIN D RANGE (ng/mL) Deficient <20 Insufficient 20 to <30 Sufficient 30 to 100 Reference: Nelida MF,Lizette NC, Yudy MENARD, et al. Evaluation,treatment, and prevention of vitamin D deficiency; an Endocrine Society clinical practice guideline. JCEM. 2010; 96(7):1911-30. PERFORMED BY: [place] [address] PATHOLOGIST [employer] MACHINE OPERATOR ERICK MEHTA M.D. Performed By: #### C MP, [id number], CBC, T4F, [id number], TSH3 wRFLX, LIPID #### [address] [place] [address] [facility] #### CJ BONNIE, RA #### [facility] , Vitamin D+Metabolites [Mass/ volume] in Serum or PlasmaOrdered By: Teagan Todd on 02-28-2024 Vitamin D+Metabolites [Mass/Vol] 14.5 ng/mL Low 30-100 [facility] Comment on above: VITAMIN D STATUS 25( [place])VITAMIN D RANGE (ng/mL) Deficient <20 Insufficient 20 to <30Sufficient 30 to 100Reference: Nelida MF,Lizette WOMACK, Yudy MENARD, et al. Evaluation,treatment, and prevention of vitamin D deficiency; an Endocrine Society clinical practice guideline. JCEM. 2010; 96(7):1911-30. Albumin [Mass/volume] in Ser um or PlasmaOrdered By: Teagan Todd on 07-19-2022 Albumin [Mass/Vol] 4.2 g/dL 3.2-5.5 [facility] Alkaline phosphatase [Enzyma tic activity/volume] in Serum or PlasmaOrdered By: Teagan Todd on 07-19-2022 ALP [Catalytic activity/Vol] 74 U/L 32-92 [facility] Aspartate aminotransferase [ Enzymatic activity/volume] in Serum or PlasmaOrdered By: Teagan Todd on 07-19-2022 AST [Catalytic activity/Vol] 19 U/L 10-42 [facility] Basophils Auto (Bld) [#/Vol] Ordered By: Teagan Todd on 07-19-2022 Basophils (Bld) [#/Vol] 0.1 10*3/uL 0.0-0.2 [facility] Basophils/100 WBC Auto (Bld) Ordered By: Teagan Todd on 07-19-2022 Basophils/100 WBC (Bld) 0.6 % . [facility] Calcium [Mass/volume] in Ser um or PlasmaOrdered By: Teagan Todd on 07-19-2022 Calcium [Mass/Vol] 9.5 mg/dL 8.2-10.2 [facility] Carbon dioxide, total [Moles /volume] in Serum or PlasmaOrdered By: Teagan Todd on 07-19-2022 CO2 [Moles/Vol] 23.3 mmol/L 22.0-30.0 [facility] Cholesterol [Mass/volume] in Serum or PlasmaOrdered By: Teagan Todd on 07-19-2022 Cholesterol [Mass/Vol] 162 mg/dL 140-200 [facility] Comment on above: Chol less than 200 m g/dl low riskChol 201-239 mg/dl borderline riskChol 240 mg/dl and greater high risk Cholesterol in LDL Calc [Mas s/Vol]Ordered By: Teagan Todd on 07-19-2022 Cholesterol in LDL [Mass/Vol] 112 mg/dL 0-100 [facility] Comment on above: LDL ATP III CLASSIFI CATIONLDL less than 100 mg/dL OptimalLDL 100-129 mg/dL Near or above optimalLDL 130-159 mg/dL Borderline highLDL 160-189 mg/dL HighLDL greater than 189 mg/dL Very high Cholesterol in VLDL Calc [Ma ss/Vol]Ordered By: Teagan Todd on 07-19-2022 Cholesterol in VLDL [Mass/Vol] 15 mg/dL [facility] Creatinine and Glomerular fi ltration rate.predicted panel (S/P/Bld)Ordered By: Teagan Todd on 07-19-2022 Creatinine [Mass/Vol] 0.83 mg/dL 0.64-1.27 [facility] Eosinophils Auto (Bld) [#/Vo l]Ordered By: Teagan Todd on 07-19-2022 Eosinophils (Bld) [#/Vol] 0.1 10*3/uL 0.0-0.45 [facility] Eosinophils/100 WBC Auto (Bl d)Ordered By: Teagan Todd on 07-19-2022 Eosinophils/100 WBC (Bld) 0.8 % . [facility] Erythrocyte distribution wid th Auto (RBC) [Ratio]Ordered By: Teagan Todd on 07-19-2022 Erythrocyte distribution width (RBC) [Ratio] 14.0 % 12.0-14.8 [facility] Estimated glomerular filtrat ion rate (GFR) non- AmericanOrdered By: Teagan Todd on 07-19-2022 GFR/1.73 sq M.predicted among non-blacks MDRD (S/P/Bld) [Vol rate/Area] > 60 mL/Min [facility] Globulin Calc (S) [Mass/Vol] Ordered By: Teagan Todd on 07-19-2022 Globulin (S) [Mass/Vol] 2.7 g/dL [facility] Hematocrit Auto (Bld) [Volum e fraction]Ordered By: Teagan Todd on 07-19-2022 Hematocrit (Bld) [Volume fraction] 45.4 % 38.8-50.0 [facility] Hemoglobin [Mass/volume] in BloodOrdered By: Teagan Todd on 07-19-2022 Hemoglobin (Bld) [Mass/Vol] 15.0 g/dL 13.0-17.0 [facility] Leukocytes [#/volume] correc eliud for nucleated erythrocytes in Blood by Automated counOrdered By: Teagan Todd on 07-19-2022 WBC corrected for nucl RBC Auto (Bld) [#/Vol] 9.2 10*3/uL 4.1-10.5 [facility] Lymphocytes Auto (Bld) [#/Vo l]Ordered By: Teagan Todd on 07-19-2022 Lymphocytes (Bld) [#/Vol] 2.2 10*3/uL 1.00-4.8 [facility] Lymphocytes/100 WBC Auto (Bl d)Ordered By: Teagan Todd on 07-19-2022 Lymphocytes/100 WBC (Bld) 23.9 % . [facility] MCH Auto (RBC) [Entitic mass ]Ordered By: Teagan Todd on 07-19-2022 MCH (RBC) [Entitic mass] 31.3 pg 27.5-35.2 [facility] MCHC Auto (RBC) [Mass/Vol]Or dered By: Teagan Todd on 07-19-2022 MCHC (RBC) [Mass/Vol] 33.0 g/dL 32.5-35.6 [facility] MCV Auto (RBC) [Entitic vol] Ordered By: Teagan Todd on 07-19-2022 MCV (RBC) [Entitic vol] 94.9 fL 83.5-101 [facility] Monocytes Auto (Bld) [#/Vol] Ordered By: Teagan Todd on 07-19-2022 Monocytes (Bld) [#/Vol] 0.6 10*3/uL 0.0-0.8 [facility] Monocytes/100 WBC Auto (Bld) Ordered By: Teagan Todd on 07-19-2022 Monocytes/100 WBC (Bld) 6.4 % . [facility] Neutrophils Auto (Bld) [#/Vo l]Ordered By: Teagan Todd on 07-19-2022 Neutrophils (Bld) [#/Vol] 6.3 10*3/uL 1.8-7.7 [facility] Neutrophils/100 WBC Auto (Bl d)Ordered By: Teagan Todd on 07-19-2022 Neutrophils/100 WBC (Bld) 68.3 % . [facility] No Panel InformationOrdered By: Teagan Todd on 07-19-2022 Estimated GFR () > 60 mL/Min [facility] Comment on above: GFR estimated refere nce range: According to KDOQI guidelines, <60 ml/min/1.73m2 is sufficient to diagnose a patient with chronic kidney disease. Pharmacy Creatinine Clearance (Chem N/A [facility] Nucleated erythrocytes [Pres ence] in Blood by Automated countOrdered By: Teagan Todd on 07-19-2022 Nucleated RBC Auto Ql (Bld) 0.1 /100{WBC} 0-0.5 [facility] Platelet mean volume Auto (B ld) [Entitic vol]Ordered By: Teagan Todd on 07-19-2022 Platelet mean volume (Bld) [Entitic vol] 9.3 fL 6.6-10.1 [facility] Platelets Auto (Bld) [#/Vol] Ordered By: Teagan Todd on 07-19-2022 Platelets (Bld) [#/Vol] 284 10*3/uL 150-450 [facility] Protein [Mass/volume] in Ser um or PlasmaOrdered By: Teagan Todd on 07-19-2022 Protein [Mass/Vol] 6.9 g/dL 6.1-7.9 [facility] RBC Auto (Bld) [#/Vol]Ordere d By: Teagan Todd on 07-19-2022 RBC (Bld) [#/Vol] 4.78 10*6/uL 3.90-5.60 [facility] Serum or plasma alanine collado otransferase measurement without P-5'-P (enzymatic activiOrdered By: Teagan Todd on 07-19-2022 ALT No additional P-5'-P [Catalytic activity/Vol] 19 U/L 10-60 [facility] Serum or plasma albumin/glob ulin mass ratioOrdered By: Teagan Todd on 07-19-2022 Albumin/Globulin [Mass ratio] 1.6 {ratio} [facility] Serum or plasma anion gap de terminationOrdered By: Teagan Todd on 07-19-2022 Anion gap [Moles/Vol] 12.3 mmol/L 6.0-15.0 [facility] Serum or plasma chloride nga surement (moles/volume)Ordered By: Teagan Todd on 07-19-2022 Chloride [Moles/Vol] 104 mmol/L 95-114 [facility] Serum or plasma glucose adebayo urement (mass/volume)Ordered By: Teagan Todd on 07-19-2022 Glucose [Mass/Vol] 89 mg/dL 70-100 [facility] Comment on above: ADA recommended refe rence rangeRandom Glucose Reference Range is dependent on time and content of last meal. Glucose of more than 200 mg/dL in a nonstressed, ambulatory subject supports the diagnosis of Diabetes Mellitus. Serum or plasma high density lipoprotein (HDL) cholesterol measurementOrdered By: Teagan Todd on 07-19-2022 Cholesterol in HDL [Mass/Vol] 35 mg/dL 29-71 [facility] Comment on above: HDL CHOL ATP-III CLA SSIFICATION Cardiovascular RiskHDL > or equal to 60 mg/dL LOWHDL < 40 mg/dL HIGH Serum or plasma potassium me asurement (moles/volume)Ordered By: Teagan Todd on 07-19-2022 Potassium [Moles/Vol] 4.6 mmol/L 3.5-5.1 [facility] Serum or plasma sodium measu rement (moles/volume)Ordered By: Teagan Todd on 07-19-2022 Sodium [Moles/Vol] 135 mmol/L 136-146 [facility] Serum or plasma total biliru bin measurement (mass/volume)Ordered By: Teagan Todd on 07-19-2022 Bilirubin [Mass/Vol] 0.4 mg/dL 0.3-1.2 [facility] Serum or plasma total choles terol/high density lipoprotein (HDL) cholesterol mass ratOrdered By: Teagan Todd on 07-19-2022 Cholesterol.total/Chol esterol in HDL [Mass ratio] 4.6 {ratio} <5.0 [facility] TSH DL <= 0.005 mIU/L QnOrde red By: Teagan Todd on 07-19-2022 TSH Qn 7.45 m[IU]/L 0.45-5.33 [facility] Thyroxine (T4) free [Mass/vo lume] in Serum or PlasmaOrdered By: Teagan Todd on 07-19-2022 Free T4 [Mass/Vol] 0.56 ng/dL 0.61-1.12 [facility] Triglyceride [Mass/volume] i n Serum or PlasmaOrdered By: Teagan Todd on 07-19-2022 Triglyceride [Mass/Vol] 77 mg/dL 35-149 [facility] Comment on above: TRIG ATP III CLASSIF ICATIONTRIG less than 150 mg/dL NormalTRIG 150-199 mg/dL Borderline highTRIG 200-500 mg/dL High TRIG greater than 500 mg/dL Very highStandard traceable to the Center for Disease Conrtrol and Prevention (CDC) test method. Urea nitrogen [Mass/volume] in Serum or PlasmaOrdered By: Teagan Todd on 07-19-2022 Urea nitrogen [Mass/Vol] 9 mg/dL 9-23 [facility] WBC Auto (Bld) [#/Vol]Ordere d By: Teagan Todd on 07-19-2022 WBC (Bld) [#/Vol] 9.2 10*3/uL 4.1-10.5 [facility] Activated partial thrombopla stin time (aPTT) in platelet poor plasma by coagulation aOrdered By: Lucho Méndez on 09-01-2021 aPTT Coag (PPP) [Time] 35.3 s 25.1-36.5 [facility] Basophils Auto (Bld) [#/Vol] Ordered By: Lucho Méndez on 09-01-2021 Basophils (Bld) [#/Vol] 0.0 10*3/uL 0.0-0.2 [facility] Basophils/100 WBC Auto (Bld) Ordered By: Lucho Méndez on 09-01-2021 Basophils/100 WBC (Bld) 0.4 % [facility] Blood hemoglobin measurement (mass/volume)Ordered By: Lucho Méndez on 09-01-2021 Hemoglobin (Bld) [Mass/Vol] 15.0 g/dL 13.0-17.0 [facility] Blood leukocytes automated c ount (number/volume)Ordered By: Lucho Méndez on 09-01-2021 WBC (Bld) [#/Vol] 9.1 10*3/uL 4.5-11.0 [facility] Body fluid albumin measureme nt (mass/volume)Ordered By: Lucho Méndez on 09-01-2021 Albumin (Body fld) [Mass/Vol] 4.4 g/dL 3.2-5.5 [facility] Creatine kinase [Enzymatic a ctivity/volume] in Serum or PlasmaOrdered By: Lucho Méndez on 09-01-2021 CK [Catalytic activity/Vol] 636 U/L 22-269 [facility] Creatinine and Glomerular fi ltration rate.predicted panel (S/P/Bld)Ordered By: Lucho Méndez on 09-01-2021 Creatinine [Mass/Vol] 1.08 mg/dL 0.64-1.27 [facility] Eosinophils Auto (Bld) [#/Vo l]Ordered By: Lucho Méndez on 09-01-2021 Eosinophils (Bld) [#/Vol] 0.1 10*3/uL 0.0-0.45 [facility] Eosinophils/100 WBC Auto (Bl d)Ordered By: Lucho Méndez on 09-01-2021 Eosinophils/100 WBC (Bld) 1.6 % [facility] Erythrocyte distribution wid th Auto (RBC) [Ratio]Ordered By: Lucho Méndez on 09-01-2021 Erythrocyte distribution width (RBC) [Ratio] 13.4 % 12.0-14.8 [facility] Estimated glomerular filtrat ion rate (GFR) non- AmericanOrdered By: Lucho Méndez on 09-01-2021 GFR/1.73 sq M.predicted among non-blacks MDRD (S/P/Bld) [Vol rate/Area] > 60 mL/Min [facility] Globulin Calc (S) [Mass/Vol] Ordered By: Lucho Méndez on 09-01-2021 Globulin (S) [Mass/Vol] 3.2 g/dL [facility] Hematocrit Auto (Bld) [Volum e fraction]Ordered By: Lucho Méndez on 09-01-2021 Hematocrit (Bld) [Volume fraction] 44.6 % 38.8-50.0 [facility] - Chemistry and C hemistry - challengeOrdered By: Lucho Méndez on 09-01-2021 Natriuretic peptide B (Bld) [Mass/Vol] 11.0 pg/mL 5-100 [facility] - CoagulationOrde red By: Lucho Méndez on 09-01-2021 PT Coag (PPP) [Time] 12.8 s 9.0-12.9 [facility] - Hematology and Cell countsOrdered By: Lucho Méndez on 09-01-2021 Nucleated RBC/100 WBC (Bld) [Ratio] 0.0 % 0-0.5 [facility] Lymphocytes Auto (Bld) [#/Vo l]Ordered By: Lucho Méndez on 09-01-2021 Lymphocytes (Bld) [#/Vol] 4.3 10*3/uL 1.00-4.8 [facility] Lymphocytes/100 WBC Auto (Bl d)Ordered By: Lucho Méndez on 09-01-2021 Lymphocytes/100 WBC (Bld) 47.8 % [facility] MCH Auto (RBC) [Entitic mass ]Ordered By: Lucho Méndez on 09-01-2021 MCH (RBC) [Entitic mass] 31.2 pg 27.5-35.2 [facility] MCHC Auto (RBC) [Mass/Vol]Or dered By: Lucho Méndez on 09-01-2021 MCHC (RBC) [Mass/Vol] 33.6 g/dL 32.5-35.6 [facility] MCV Auto (RBC) [Entitic vol] Ordered By: Lucho Méndez on 09-01-2021 MCV (RBC) [Entitic vol] 92.8 fL 83.5-101 [facility] Monocytes Auto (Bld) [#/Vol] Ordered By: Lucho Méndez on 09-01-2021 Monocytes (Bld) [#/Vol] 0.9 10*3/uL 0.0-0.8 [facility] Monocytes/100 WBC Auto (Bld) Ordered By: Lucho Méndez on 09-01-2021 Monocytes/100 WBC (Bld) 10.2 % [facility] Neutrophils Auto (Bld) [#/Vo l]Ordered By: Lucho Méndez on 09-01-2021 Neutrophils (Bld) [#/Vol] 3.6 10*3/uL 1.8-7.7 [facility] Neutrophils/100 WBC Auto (Bl d)Ordered By: Lucho Méndez on 09-01-2021 Neutrophils/100 WBC (Bld) 40.0 % [facility] No Panel InformationOrdered By: Lucho Méndez on 09-01-2021 Estimated GFR () > 60 mL/Min [facility] Comment on above: GFR estimated refere nce range: According to KDOQI guidelines, <60 ml/min/1.73m2 is sufficient to diagnose a patient with chronic kidney disease. Pharmacy Creatinine Clearance (Chem 152.65 [facility] Platelet mean volume Auto (B ld) [Entitic vol]Ordered By: Lucho Méndez on 09-01-2021 Platelet mean volume (Bld) [Entitic vol] 8.3 fL 6.6-10.1 [facility] Platelet poor plasma interna tional normalized ratio (INR) by coagulation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
--- NOTE | 2024-11-12 23:57 | ED_ITS ---
HPI - Abdominal Pain General Chief Complaint: Back Pain/Injury Stated Complaint: DEHYDRATED, PEEING DARK ORANGE, RIGHT WRIST HURTS Time Seen by Provider: 11/12/24 23:40 Source: patient Mode of arrival: walk-in Limitations: no limitations History of Present Illness HPI narrative: patient feels he is dehydrated. 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 States light headed last week getting out of the shower and fell injuring his right wrist. Continues to have pain. Today feels like he is dehydrated. Has bilat flank pain and states his urine is dark. Related Data Home Medications ?Medication ?Instructions ?Recorded ?Confirmed No Known Home Medications 11/12/2410/26 Allergies Allergy/AdvReac Type Severity Reaction Status Date / Time No Known Drug Allergies Allergy Verified 11/12/24 23:30 Review of Systems ROS Status of ROS 10 or more systems reviewed and unremark able except as noted in history and below PFSH PFS Social History Little interest or pleasure in doing things: not at all Feeling down, depressed, or hopeless: not at all Exam Constitutional Vital Signs, click to edit/add: Last Vital Signs Temp 98.5 F 11/12/24 23:33 Pulse 55 L 11/13/24 01:33 Resp 17 11/13/24 01:33 BP 124/72 11/13/24 01:33 Pulse Ox 98 11/13/24 01:33 O2 Del Method Room Air 11/12/24 23:33 Common normals: no apparent distress, average body habitus, oriented x3, no limitations, healthy appearing, alert and well nourished [facility] Common normals: normocephalic and head/scalp atraumatic Eye Common normals: EOMs intact bilaterally and conjunctivae normal Respiratory Common normals: normal respiratory effort, no retractions, no use of accessory muscles and clear to auscultation bilaterally Cardio Common normals: regular rate, regular rhythm, S1 normal heart sound and S2 normal heart sound GI Common normals: Normal to inspection, nondistended, normoactive bowel sounds present and soft to palpation Other: bilat flank mod tenderness Extremity Common normals: normal to inspection and full ROM Neuro Common normals: oriented x3, CN's II-XII intact bilaterally and moves all extremities Sensorium/orientation: awake Psych Appearance: grossly normal Course Vital Signs Vital signs: Vital Signs Temperature 98.5 F 11/12/24 23:33 Pulse Rate 71 11/12/24 23:33 Respiratory Rate 19 11/12/24 23:33 Blood Pressure 140/95 H 11/12/24 23:33 Pulse Oximetry 97 11/12/24 23:33 Oxygen Delivery Method Room Air 11/12/24 23:33 Temperature 98.5 F 11/12/24 23:33 Pulse Rate 55 L 11/13/24 01:33 Respiratory Rate 17 11/13/24 01:33 Blood Pressure 124/72 11/13/24 01:33 Pulse Oximetry 98 11/13/24 01:33 Oxygen Delivery Method Room Air 11/12/24 23:33 MDM - Abdominal Pain MDM Narrative Medical decision making narrative: patient presents complaining of flank pain bilat, dehydration and injury of his right wrist from a fall one week ago. UA confirms dehydration. No pyuria. labs unremarkable as was CT of the abd/pelvis. Xray right wrist neg. per my preliminary review. No navicular tenderness. Patient provided norflex for flank pain which is likely muscular as he is now working on a pig farm. He did not want a splint for his wrist. Discharged with Norflex and is to follow up with his doctor Lab Data Labs: Lab Results 11/12/24 11/13/24 Range/Units 00:11 02:15 WBC 9.8 (4.0-11.0) 10^3/uL RBC 4.64 L (4.70-6.10) 10^6/uL Hgb 14.7 (14.0-18.0) g/dL Hct 42.5 (42.0-54.0) % MCV 91.6 (80.0-94.0) fL MCH 31.7 (25.9-34.0) pg MCHC 34.6 (29.9-35.2) g/dL RDW 13.2 (11.0-15.0) % Plt Count 304 (150-450) 10^3/uL MPV 10.0 (9.5-13.5) fL Neut % (Auto) 60.3 (43.0-75.0) % Lymph % (Auto) 30.9 (20.5-60.0) % Chaves % (Auto) 7.5 (1.7-12.0) % Eos % (Auto) 0.6 L (0.9-7.0) % Baso % (Auto) 0.5 (0.2-2.0) % Neut # (Auto) 5.9 (1.4-6.5) 10^3/uL Lymph # (Auto) 3.0 (1.2-3.8) 10^3/uL Chaves # (Auto) 0.7 (0.3-0.8) 10^3/uL Eos # (Auto) 0.1 (0.0-0.7) 10^3/uL Baso # (Auto) 0.1 (0.0-0.1) 10^3/uL Abs Immat Gran (auto) 0.02 (0.00-0.03) 10^3/uL Imm/Tot Granulo (auto) 0.2 (0.0-0.5) % Sodium 139 (136-145) mmol/L Potassium 4.0 (3.5-5.1) mmol/L Chloride 102 (98-107) mmol/L Carbon Dioxide 26.5 (21.0-32.0) mmol/L Anion Gap 14.5 BUN 17.0 (7.0-18.0) mg/dL Creatinine 0.98 (0.70-1.30) mg/dL Est GFR ( Amer) >60 (>=60 mL/min/1.73m^2) Est GFR (Non-Af Amer) >60 (>=60 mL/min/1.73m^2) BUN/Creatinine Ratio 17.3 Glucose 105 (74-106) mg/dL Lactate 1.0 (0.4-2.0) mmol/L Calcium 9.7 (8.5-10.1) mg/dL Total Bilirubin 0.7 (0.2-1.0) mg/dL AST 35 (15-37) U/L ALT 39 (16-63) U/L Alkaline Phosphatase 92 (46-116) U/L Total Protein 8.1 (6.4-8.2) g/dL Albumin 4.1 (3.4-5.0) g/dL Globulin 4.0 g/dL Albumin/Globulin Ratio 1.0 Urine Color Yellow (YELLOW) Urine Clarity Clear (CLEAR) Urine pH 6.0 (5.0-9.0) Ur Specific [place] >=1.030 A (1.005-1.025) Urine Protein Negative (NEG/TRACE) mg/dL Urine Glucose (UA) Negative (NEGATIVE) mg/dL Urine Ketones Negative (NEGATIVE) mg/dL Urine Occult Blood Negative (NEGATIVE) Urine Nitrite Negative (NEGATIVE) Urine Bilirubin Negative (NEGATIVE) Urine Urobilinogen 0.2 (0.2-1.0) EU/dL Ur Leukocyte Esterase Negative (NEGATIVE) Urine RBC None seen (0-2) #/HPF Urine WBC 0-2 A (NONE SEEN) #/HPF Ur Squamous Epith Cells None seen (NONE/RARE) #/LPF Urine Crystals None seen (None Seen) #/HPF Urine Bacteria None seen (NONE SEEN) #/HPF Urine Casts None seen (NONE SEEN) #/LPF Urine Mucus Small A (NONE SEEN) Ur Culture Indicated? No Discharge Plan Discharge Chief Complaint: Back Pain/Injury Clinical Impression: Acute flank pain, Acute dehydration, Sprain and strain of right wrist Patient Disposition: Home, Self-Care Prescriptions / Home Meds: No Action No Known Home Medications Print Language: Tuvaluan Instructions: Dehydration (ED), Sprain (ED), Flank Pain (ED) Additional Instructions: drink plenty of fluids and follow up with your doctor in next 2-3 days for recheck Referrals: Teagan Todd NP [Primary Care Provider] - 1 week
[2024-11-13 00:25] LABS: Basophils Absolute Auto 0.1 10^3/uL (0.0-0.1); Basophils Percent Auto 0.5 % (0.2-2.0); Eosinophils Absolute Auto 0.1 10^3/uL (0.0-0.7); Eosinophils Percent Auto 0.6 % (0.9-7.0); Hematocrit 42.5 % (42.0-54.0); Hemoglobin 14.7 g/dL (14.0-18.0); Immature Granulocytes Abs Auto 0.02 10^3/uL (0.00-0.03); Immature Granulocytes Pct Auto 0.2 % (0.0-0.5); Lymphocytes Percent Auto 30.9 % (20.5-60.0); Mean Corpuscular HGB Conc 34.6 g/dL (29.9-35.2); Mean Corpuscular Hemoglobin 31.7 pg (25.9-34.0); Mean Corpuscular Volume 91.6 fL (80.0-94.0); Monocytes Absolute Auto 0.7 10^3/uL (0.3-0.8); Monocytes Percent Auto 7.5 % (1.7-12.0); Neutrophils Absolute Auto 5.9 10^3/uL (1.4-6.5); Neutrophils Percent Auto 60.3 % (43.0-75.0); Platelet Count 304 10^3/uL (150-450); Red Blood Count 4.64 10^6/uL (4.70-6.10); Red Cell Distribution Width 13.2 % (11.0-15.0); White Blood Count 9.8 10^3/uL (4.0-11.0)
[2024-11-13 00:42] LABS: Alanine Aminotransferase 39 U/L (16-63); Albumin Level 4.1 g/dL (3.4-5.0); Alkaline Phosphatase 92 U/L (46-116); Anion Gap 14.5; Aspartate Amino Transferase 35 U/L (15-37); BUN Creatinine Ratio 17.3; Bilirubin Total 0.7 mg/dL (0.2-1.0); Calcium 9.7 mg/dL (8.5-10.1); Carbon Dioxide 26.5 mmol/L (21.0-32.0); Chloride 102 mmol/L (98-107); Estimated GFR (African America >60 (>=60 mL/min/1.73m^2); Estimated GFR (Non-African Ame >60 (>=60 mL/min/1.73m^2); Glucose 105 mg/dL (74-106); Sodium 139 mmol/L (136-145); Total Protein 8.1 g/dL (6.4-8.2)
[2024-11-13] MEDS: 0.9 % SODIUM CHLORIDE 1,000 ML 999 ML IV (01:04)
[2024-11-13 01:33] VITALS: BP 124/72; PULSE 55; O2SAT 98
--- NOTE | 2024-11-13 01:34 | PC.NURSE ---
this patient lying awake and alert texting on his eladio phone this patient still unable to provide a urine sample but still has about 500 ml of his 0.9 NS to be infused
[2024-11-13 02:22] LABS: Bilirubin Urine NEGATIVE (NEGATIVE); Blood Urine NEGATIVE (NEGATIVE); Clarity Urine CLEAR (CLEAR); Color Urine YELLOW (YELLOW); Glucose Urine UA NEGATIVE (NEGATIVE); Ketones Urine NEGATIVE (NEGATIVE); Leukocyte Esterase Urine NEGATIVE (NEGATIVE); Nitrite Urine NEGATIVE (NEGATIVE); Protein Urine NEGATIVE (NEG/TRACE); Specific Gravity Urine >=1.030 (1.005-1.025); Urobilinogen Urine 0.2 EU/dL (0.2-1.0)
[2024-11-13 02:35] LABS: Bacteria Urine NONE SEEN #/HPF (NONE SEEN); Crystals Seen? None Seen #/HPF (None Seen); Mucus Urine SMALL (NONE SEEN); RBC Urine NONE SEEN #/HPF (0-2); Squamous Epithelial Cell Urine NONE SEEN #/LPF (NONE/RARE); WBC Urine 0-2 #/HPF (NONE SEEN)
[2024-11-13 02:36] LABS: Cast Seen? NONE SEEN #/LPF (NONE SEEN); Urine Culture Indicated NO
[2024-11-13 03:06] VITALS: BP 114/72; PULSE 60; TEMP 37.1; O2SAT 96
--- NOTE | 2024-11-13 03:11 | PC.NURSE ---
i gave this patient verbal and paper discharge orders along with 1 Rx, and this patient voices yes to understanding these. at time of discharge this patient voices no concerns, needs and shows no signs of distress. this patient voices I do feel better but I am under a lot of stress
== END 2024-11-13 03:10 | disposition home or self-care (01) ==
PROVIDERS: Emergency Provider Internal Medicine; PCP Nurse Practitioner Family
DX: R10.84 Generalized abdominal pain (principal); E86.0 Dehydration; S63.501A Unspecified sprain of right wrist, initial encounter; M25.531 Pain in right wrist
CPT/HCPCS: 36415; 73110; 74176; 80053; 81001; 83605; 85025; 99285